=== PATIENT | female | born 1995 | race Caucasian/White ===

== ENCOUNTER 2019-12-19 21:41 | Outpatient (CLI) | payer BC ==
[~2019-12-19] VITALS: Ht 154.9 cm; Wt 88.1 kg
[2019-12-19 21:58] VITALS: BP 130/86
--- NOTE | 2019-12-19 23:32 | IPNPDOC ---
Text Note Date of Service The patient was seen on 12/19/19. NOTE Outpatient 24yo G1 FABIANO 02/11/2020-02/18/2020 (pt states she has been given two different dates). Presents @ 32 weeks with complaints of gush of fluid today, pink tinged. Denies cramping or pain. Reports fetus is active. Pt is here from [place] for a wedding this weekend. Saw her provider yesterday. Reports transient mild hypertension early in . Denies further complications. VSS, NAD Abdomen soft, gravid, nontender Cat I tracing, no UC on monitor. Spec exam neg pool, neg valsalva. Moderate pink/mathur tinged mucous. Cervix bled to touch. Unable to confirm fern due to quantity of RBC. Ordered sono for KENN, cervical length and placental location. Dr Choudhury aware of pt status. Vanessa Blackwell CNM Dec 19, 2019 23:32
--- NOTE | 2019-12-19 23:51 | REPVR ---
PROCEDURE INFORMATION: Exam: US First Trimester, Transabdominal Exam date and time: 12/19/2019 11:23 PM Age: 24 years old Clinical indication: Lmp or gestational age (in weeks): 05/14/2019; Other: Rom; ; Additional info: Lof? Kenn, placental location, cervical length TECHNIQUE: Imaging protocol: Real-time transabdominal obstetrical ultrasound of the maternal pelvis and a first trimester , less than 14 weeks 0 days, with image documentation. COMPARISON: No relevant prior studies available. FINDINGS: Gestation: Single live intrauterine gestation. Embryonic/ heart rate: heart rate measures 158 bpm. Presentation: Cephalic position. Placenta: Placenta is anterior. No placenta previa. No placenta abruption. Amniotic fluid: Amniotic fluid is normal for gestational age. Amniotic fluid index: KENN is 12.1. anatomy: stomach is unremarkable. kidneys are unremarkable. bladder is unremarkable. Limited evaluation of the remaining anatomy. BIOMETRY: Gestational age (AUA): Estimated gestational age is 31 weeks 5 days. Estimated due date (AUA): Estimated due date is 02/15/2020. Estimated weight: Estimated weight is 1820 g +/-269 g. 52 percentile. Biparietal diameter: BPD is 8.3 cm. 93 percentile. Head circumference: Head circumference is 28.2 cm. 9 percentile. Abdominal circumference: Abdominal circumference is 28.2 cm. 74 percentile. Femur length: Femur length is 5.9 cm. 20 percentile MATERNAL: Uterus: Unremarkable. Cervix: Cervix measures 3.7 cm in length. Cervix is long and closed. Right adnexa: Unremarkable. Left adnexa: Unremarkable. Intraperitoneal space: No intraperitoneal free fluid. IMPRESSION: 1. Single live intrauterine gestation. 2. Estimated gestational age is 31 weeks 5 days. 3. Estimated due date is 02/15/2020. 4. Cervix is long and closed. 5. Placenta is anterior. 6. KENN is 12.1. PROCEDURE INFORMATION: Exam: US Doppler Velocimetry of the Umbilical Artery Exam date and time: 12/19/2019 11:23 PM Clinical indication: Lmp or gestational age (in weeks): 05/14/2019; Rupture membranes. Loss of fluid. TECHNIQUE: Imaging protocol: US Doppler velocimetry of the umbilical artery with Doppler color and waveform analysis. COMPARISON: No relevant prior studies available. FINDINGS: Umbilical cord and insertion: There are 2 umbilical arteries and 1 umbilical vein. Cord insertion on the abdominal wall is normal. Umbilical artery Doppler: Waveforms are within normal limits for age. Umbilical artery peak systolic velocity: Peak systolic velocity is 43 cm/s. Umbilical artery systolic to diastolic ratio: Systolic to diastolic ratio is within normal limits for age. 2.97. IMPRESSION: Unremarkable umbilical Doppler for age. Electronically signed by: Desirae Blum On 12/19/2019 23:51:29 PM
[2019-12-20 00:16] VITALS: BP 131/73
--- NOTE | 2019-12-20 00:21 | IPNPDOC ---
Text Note Date of Service The patient was seen on 12/20/19. NOTE Outpatient Cat I tracing, no UC Peripad absolutely dry, eraser sized spot of blood Sono - cephalic, KENN 12.1, EFW 1820gm, 52% Cervix LTC, no previa or abruption Pt is reassured. Discharged home. Routine precautions. Avoid strenuous activity ( had walked entire [place] today). Keep appt with provider. Vanessa Blackwell CNM Dec 20, 2019 00:21
== END 2019-12-20 00:37 | disposition home or self-care (01) ==
LOC: M LDO 21:41
PROVIDERS: ATTEND Advanced Practice Midwife
DX: O26.893 Other specified pregnancy related conditions, third trimester (principal); Z3A.31 31 weeks gestation of pregnancy
CPT/HCPCS: 59025; 76811; 76820; G0378; G0463